=== PATIENT | female | born 1960 | race Caucasian/White ===

== ENCOUNTER 2022-12-14 13:28 | Emergency (ER) | payer BC, SELFPAY ==
[2022-12-14 13:29] VITALS: BP 159/89; PULSE 93; RESP 18; TEMP 37.1; O2SAT 100; BMI 30.4
--- NOTE | 2022-12-14 13:57 | RAD_ITS ---
EXAM: XR LEFT FINGERS, 2 OR MORE VIEWS CLINICAL INDICATION: Injury/Pain TECHNIQUE: Frontal, lateral and oblique views of the fingers of the left hand. COMPARISON: No relevant prior studies available. FINDINGS: BONES/JOINTS: Nondisplaced fracture of the distal tuft of the first distal phalanx. SOFT TISSUES: Soft tissue swelling of the thumb noted predominantly distally. No radiopaque foreign body. RAD/Finger(s) Min 2 Views IMPRESSION: Acute nondisplaced tuft fracture of the first distal phalanx Electronically Signed: James Chavez MD at 15:43 EDT ,
--- NOTE | 2022-12-14 14:02 | EDS_ITS ---
HPI <JOSE Michele - Last Filed: 12/14/22 15:20> History of Present Illness Chief Complaint: Upper Extremity Injury Narrative Narrative: Patient was using a hammer to break up a rock to look for fossils when it struck her left thumb. She has some bleeding from underneath the nail. No weakness numbness or tingling. She was sent here for evaluation from urgent care. She is right-hand dominant. PFSH <JOSE Michele - Last Filed: 12/14/22 15:20> [facility] Medical History (Updated 12/14/22 @ 15:[address] Wilfred Doss MD) Hypothyroid Home Medications cephalexin 500 mg capsule 500 mg PO Q12 #14 CAPSULES 12/14/22 [Rx Last Taken Unknown] levothyroxine 125 mcg tablet 125 mcg PO DAILY 12/14/22 [History Last Taken Unknown] Allergy/AdvReac Type Severity Reaction Status Date / Time shellfish derived Allergy Nausea/Vom/ Verified 12/14/22 13:31 Diarrhea Surgical History (Updated 12/14/22 @ 13:32 by Phoenix Manzanares) S/P removal of right ovary Social History Smoking Status: Never smoker ROS <JOSE Michele - Last Filed: 12/14/22 15:20> ROS ED ROS Narrative Constitutional: Negative for fever, chills, malaise. Neuro: Negative for motor/sensory dysfunction. Skin: Positive for laceration. Musc: Positive for abdominal pain, swelling, trauma. EXAM <JOSE Michele Last Filed: 12/14/22 15:20> Physical Exam Narrative Exam Narrative: CONST: Patient sitting in no acute distress. EYES: Normal inspection. NECK: Normal inspection. RESP: No respiratory distress, CTAB. CVS: Regular rate and rhythm, no murmur, no gallop. SKIN: Bleeding from under the radial distal portion of the left thumbnail with a subungual hematoma covering 25% of the distal nail. Nail is firmly adhered. EXTREMITIES: Normal appearance left hand and digits, full range of motion of the thumb, no ligamentous laxity. Normal motor and sensory function median radial and ulnar distributions, 2+ radial pulse. NEURO: Oriented x4. PSYCH: Normal affect. Const Vital Signs: 12/14/22 13:29 Temperature 98.8 F Temperature Source Temporal Pulse Rate 93 Respiratory Rate 18 Blood Pressure 159/89 H Blood Pressure Mean 112 Pulse Ox 100 Oxygen Delivery Method Room Air [facility] [place] <JOSE Michele - Last Filed: 12/14/22 15:20> [facility] Narrative Medical decision making narrative: I have personally performed a face to face assessment of the patient and have reviewed the JENELLE Note. I performed a substantive portion of the visit including all aspects of the following. My rosa findings include: History is remarkable for blunt trauma left thumb. Patient is right-hand dominant. She was breaking stones since he was on a fossil reese with her . She sustained injury to the left thumb. She complains of pain. She presently denies paresthesia. Immunizations unknown. Exam is there is a 2025% subungual hematoma. There is a 5 mm disruption of the skin tip of the left thumb. The extensor pollicis brevis and extensor pollicis longus are functionally intact. There is no laxity of the collateral ligaments. Sensation is normal. Medical Decision Making x-ray was obtained to evaluate for fracture. The subungual hematoma is small and does not require trephination. Other additions or changes: ED attending interpretation of three-view x-ray of the thumb reveals a nondisplaced tuft fracture. Since this is an open fracture will place on antibiotics and was referred to orthopedist on-call. <Dr. Wilfred Doss MD - Last Filed: 12/14/22 15:30> [facility] Narrative Medical decision making narrative: I have personally performed a face to face assessment of the patient and have reviewed the JENELLE Note. I performed a substantive portion of the visit including all aspects of the following. My rosa findings include: History is remarkable for blunt trauma left thumb. Patient is right-hand dominant. She was breaking stones since he was on a fossil reese with her . She sustained injury to the left thumb. She complains of pain. She presently denies paresthesia. Immunizations unknown. Exam is there is a 2025% subungual hematoma. There is a 5 mm disruption of the skin tip of the left thumb. The extensor pollicis brevis and extensor pollicis longus are functionally intact. There is no laxity of the collateral ligaments. Sensation is normal. Medical Decision Making x-ray was obtained to evaluate for fracture. The subungual hematoma is small and does not require trephination. Other additions or changes: Three-view x-ray of the thumb reveals a nondisplaced tuft fracture. Since this is an open fracture will place on antibiotics and was referred to orthopedist on-call. Radiography Chest X-Ray - ED: Read by ED Physician (3 views of the thumb reveals nondisplace d tuft fracture.) Discharge Plan Triage Chief Complaint: Upper Extremity Injury ED Midlevel Provider: Kate Jacobson ED Provider: Wilfred Doss Dx/Rx/DC Orders Clinical Impression: Open fracture of tuft of distal phalanx of left thumb, Hematoma, subungual, thumb, left Instructions: ED Fracture, Thumb Prescriptions: New cephalexin 500 mg capsule 500 mg PO Q12 Qty: 14 0RF No Action levothyroxine 125 mcg Tablet 125 mcg PO DAILY Primary Care Provider: Care Physician,No Primary Referrals: Thanh Jaffe DO [Med Staff - Active Staff] - Care Physician,No Primary [Primary Care Provider] - Disposition Disposition: Home, Self Care
[2022-12-14] MEDS: Acetaminophen 325 MG Tablet 650 MG PO (14:30)
[2022-12-14] MEDS: Diphth,Pertuss(Acell),Tet Vac 0.5 ML Vial IM (14:31)
[2022-12-14] MEDS: Cephalexin 250 MG Capsule 500 MG PO (15:20)
[2022-12-14 15:30] VITALS: RESP 18
== END 2022-12-14 15:34 | disposition home or self-care (01) ==
PROVIDERS: Emergency Provider Emergency Medicine; Visit Provider Emergency Medicine
DX: S62.66 Nondisplaced fracture of distal phalanx of finger (principal); W27.8XXA Contact with other nonpowered hand tool, initial encounter; Z23 Encounter for immunization
CPT/HCPCS: 73140; 90471; 90715; 99284